=== PATIENT | female | born 1985 | race Caucasian/White ===

== ENCOUNTER 2020-07-01 22:19 | Emergency (ER) | payer OTHER, SELFPAY ==
[2020-07-01 22:16] VITALS: BP 126/100; PULSE 117; RESP 17; TEMP 37.1; O2SAT 100
[2020-07-01 22:51] LABS: Basophils Absolute Auto 0.1 K/mm3 (0.0-0.1); Basophils Percent Auto 1.3 % (0.2-1.2); Eosinophils Absolute Auto 0.1 K/mm3 (0-0.3); Hematocrit 33.5 % (37.0-47.0); Hemoglobin 11.6 g/dL (12.0-15.0); Immature Granulocyte Absolute 0.03 K/mm3 (0.00-0.031); Immature Granulocyte Percent A 0.6 % (0-0.5); Lymphocytes Absolute Auto 2.06 K/mm3 (0.9-3.2); Mean Corpuscular HGB Conc 34.6 g/dl (32-36); Mean Corpuscular Volume 98.2 fl (80-100); Monocytes Absolute Auto 0.5 K/mm3 (0.1-0.6); Monocytes Percent Auto 9.6 % (2.6-8.5); Neutrophils Absolute Auto 2.1 K/mm3 (1.3-6.7); Neutrophils Percent Auto 44.5 % (45.5-73.1); Platelet Count Result 146 k/mm3 (150-375); Red Blood Count 3.41 M/mm3 (4.2-5.4); Red Cell Distribution Width 14.6 % (11.5-14.5); White Blood Count 4.8 K/mm3 (4.5-10.0)
[2020-07-01 23:00] VITALS: BP 122/79; PULSE 81; RESP 19; O2SAT 99
[2020-07-01] MEDS: SODIUM CHLORIDE 0.9% IV 1,000 ML 999 ML IV CONT (23:02)
[2020-07-01 23:12] LABS: Anion Gap 17 mmol/L (8-16); Blood Urea Nitrogen 6 mg/dL (7-17); Calcium 8.8 mg/dL (8.4-10.2); Carbon Dioxide 25 mmol/L (22-30); Chloride 100 mmol/L (98-107); Estimated CRCL calculation 83 ml/min; Estimated Glomerular Filt Rate > 60; Glucose 57 mg/dL (65-105); Sodium 142 mmol/L (137-145)
[2020-07-01 23:14] LABS: Ethanol 420 mg/dL (<10)
--- NOTE | 2020-07-01 23:30 | PC.NURSE ---
Asked pt to void states she cant yet.
[2020-07-01 23:43] LABS: Glucose Point of Care 49 (65-105)
[2020-07-01 23:44] VITALS: PULSE 112
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
--- NOTE | 2020-07-01 23:57 | PC.NURSE ---
Informed pt. we need a urine sample states she doesn't think she can pee.
[2020-07-02] VITALS: BP 116/75; PULSE 88; RESP 20; O2SAT 100
--- NOTE | 2020-07-02 00:14 | PC.NURSE ---
Pt. up to provide urine sample.
[2020-07-02 00:19] LABS: Glucose Point of Care 78 (65-105)
[2020-07-02] MEDS: ACETAMINOPHEN 500 MG TABLET 1000 MG PO (01:06)
[2020-07-02 01:27] LABS: Glucose Point of Care 192 (65-105)
[2020-07-02 01:30] VITALS: BP 118/77; PULSE 92; RESP 14; O2SAT 100
[2020-07-02 02:30] VITALS: BP 115/86; PULSE 93; RESP 17; O2SAT 99
== END 2020-07-02 02:30 | disposition home or self-care (01) ==
PROVIDERS: Emergency Medicine; Emergency Provider Emergency Medicine
DX: N93.8 Other specified abnormal uterine and vaginal bleeding (principal); F10.129 Alcohol abuse with intoxication, unspecified; Y90.8 Blood alcohol level of 240 mg/100 ml or more; E16.2 Hypoglycemia, unspecified; Z91.410 Personal history of adult physical and sexual abuse
CPT/HCPCS: 36415; 80048; 80307; 81025; 82948; 85025; 96360; 99284; A9270; J7030

== ENCOUNTER 2020-07-11 15:18 | Inpatient (IN) | payer OTHER, SELFPAY ==
[2020-07-11] VITALS (8 sets, daily range): BP systolic 120–167; BP diastolic 75–90; PULSE 71–120; RESP 12–18; TEMP 37.3–39.4; O2SAT 97–100; BMI 19.5
--- NOTE | ~2020-07-11 | CT_ITS ---
EXAMINATION:CT chest w con DATE: 07/14/2020 10:54 INDICATION: Liver mass. TECHNIQUE: Computed tomography (CT) of the chest was performed with 75 mL Omnipaque 350 intravenous c ontrast. Automated exposure control and iterative reconstruction technique were employed. The dose-le ngth product (DLP) was 149.41 mGy-cm. COMPARISON: CT abdomen and pelvis 07/11/2020 FINDINGS: There is mild scarring at the lung apices. There is a staple line in left lung lower lobe. There is mild scarring in the lingula. No pleural effusion. The heart size is normal. No pericardial effusion. There is diffuse hepatic steatosis. Partially visualized are 2 masses in the liver with lar jayleen measuring 2.1 cm with peripheral nodular hyperenhancement in the larger mass. The spine is unrema rkable. IMPRESSION: 1. Partially visualized liver masses better evaluated on the recent abdomen MRI. In the absence of kn own malignancy or chronic liver disease, these findings are likely benign masses such as hemangiomas or focal nodular hyperplasia. 2. Diffuse hepatic steatosis. Reviewed, dictated and finalized at location A. IMPRESSION: 1. Partially visualized liver masses better evaluated on the recent abdomen MRI . In the absence of known malignancy or chronic liver disease, these findings a re likely benign masses such as hemangiomas or focal nodular hyperplasia. 2. Diffuse hepatic steatosis.
--- NOTE | ~2020-07-11 | US_ITS ---
EXAMINATION: US breast LT limited HISTORY: Palpable lumps at the 3:00 and 9:00 locations of the left breast, history of reduction mamm oplasty TECHNIQUE: Limited left breast ultrasound is performed. FINDINGS: There is no evidence of focal abnormal cystic or solid mass in the vicinity of the areas of reported palpable abnormality. IMPRESSION: No sonographic correlate for the patient's reported palpable abnormality. Recommend follow-up with di agnostic mammogram. BI-RADS Category 0: Incomplete: Needs additional imaging evaluation. Reviewed, dictated and finalized at location A. IMPRESSION: No sonographic correlate for the patient's reported palpable abnormality. Recom mend follow-up with diagnostic mammogram. BI-RADS Category 0: Incomplete: Needs additional imaging evaluation.
--- NOTE | ~2020-07-11 | CT_ITS ---
EXAMINATION: CT abdomen pelvis wo con DATE: 07/11/2020 16:28 INDICATION: Bilateral flank pain. TECHNIQUE: Computed tomography (CT) of the abdomen and pelvis was performed without intravenous contr ast. Automated exposure control and iterative reconstruction technique were employed. The dose-length product was 169.88 mGy-cm. COMPARISON: None. FINDINGS: The visualized portions of the lung bases demonstrate mild atelectasis in the left. There i s a staple line in left lower lobe. No pleural effusion. The heart size is normal. No pericardial eff usion. There is diffuse hepatic steatosis. There is a 2.2 cm mass at the junction of segments V and V I of the liver. There is a 9 mm mass in segment VII. There is a 9 mm mass in segment IVb. The gallbla dder, spleen, pancreas, adrenal glands, and kidneys are normal. There is no urolithiasis. There are n o dilated loops of bowel. The appendix is normal. There are no pathologically enlarged lymph nodes. T here is no free intraperitoneal fluid. There is mild lumbar spondylosis. IMPRESSION: 1. Liver masses, which may be benign or less likely malignant. Abdomen MRI without and with contrast is recommended. 2. Diffuse hepatic steatosis. 3. No urolithiasis. Reviewed, dictated and finalized at location A. IMPRESSION: 1. Liver masses, which may be benign or less likely malignant. Abdomen MRI with out and with contrast is recommended. 2. Diffuse hepatic steatosis. 3. No urolithiasis.
--- NOTE | ~2020-07-11 | XR_ITS ---
XR chest 1V portable DATE: 07/12/2020 06:50 INDICATION: Fever. Nausea, vomiting, diarrhea. Liver masses. TECHNIQUE: Portable AP chest on 07/12/2020 at 0648 hours COMPARISON: Postoperative change from partial surgical resection at the left lower lobe. No active in filtrate or consolidation, pleural effusion, pulmonary vascular congestion or pneumothorax is detecte d. FINDINGS: Postoperative change from partial surgical resection at the left lower lobe. No active infi ltrate or consolidation, pleural effusion, pulmonary vascular congestion or pneumothorax is detected. Normal heart size. Included skeletal structures are unremarkable other than some likely postoperative change of the left rib cage and mild dextroscoliosis of the thoracic spine. Incidental finding of spina bifida occulta at C7 and T1. IMPRESSION: Status post partial resection of the left lower lobe; no active cardiopulmonary disease Reviewed, dictated and finalized at location A. IMPRESSION: Status post partial resection of the left lower lobe; no active car diopulmonary disease
--- NOTE | ~2020-07-11 | MR_ITS ---
EXAMINATION: MR abdomen wo/w con DATE: 07/12/2020 12:18 INDICATION: Liver masses. TECHNIQUE: Magnetic resonance imaging (MRI) of the abdomen was performed without and with 9 mL MultiH ance intravenous contrast. Sequences included coronal T2-weighted FS FSE, coronal and axial FS FIESTA , axial T2-weighted FSE, coronal LAVA-flex, axial STIR FSE, axial DWI, axial dual-echo T1-weighted FS PGR, and axial LAVA. Postcontrast sequences included coronal LAVA-flex and a time course of axial LAV A. COMPARISON: Chest CT 07/11/2020 FINDINGS: There is diffuse hepatic steatosis. There are 3 hyperenhancing masses in the liver measuring up to 2. 2 cm. No washout. The gallbladder, spleen, pancreas, adrenal glands, and kidneys are normal. There ar e no dilated loops of bowel. There are no pathologically enlarged lymph nodes. There is no free intra peritoneal fluid. IMPRESSION: 1. 3 hyperenhancing liver masses measuring up to 2.2 cm. In the absence of known malignancy or chroni c liver disease, these findings are likely benign masses such as hemangiomas or focal nodular hyperpl krunal. 2. Diffuse hepatic steatosis. Reviewed, dictated and finalized at location A. IMPRESSION: 1. 3 hyperenhancing liver masses measuring up to 2.2 cm. In the absence of know n malignancy or chronic liver disease, these findings are likely benign masses such as hemangiomas or focal nodular hyperplasia. 2. Diffuse hepatic steatosis.
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
[2020-07-11 15:58] LABS: Basophils Percent Auto 0.5 % (0.2-1.2); Hematocrit 34.8 % (37.0-47.0); Hemoglobin 11.8 g/dL (12.0-15.0); Immature Granulocyte Absolute 0.16 K/mm3 (0.00-0.031); Immature Granulocyte Percent A 3.9 % (0-0.5); Immature Platelet Fraction Pct 2.1 % (0.9-11.2); Lymphocytes Absolute Auto 0.15 K/mm3 (0.9-3.2); Lymphocytes Percent Auto 3.6 % (18.3-44.2); Mean Corpuscular HGB Conc 33.9 g/dl (32-36); Mean Corpuscular Hemoglobin 33.6 pg (26-34); Mean Corpuscular Volume 99.1 fl (80-100); Mean Platelet Volume 8.9 fl (7.4-10.4); Monocytes Absolute Auto 0.2 K/mm3 (0.1-0.6); Monocytes Percent Auto 5.4 % (2.6-8.5); Neutrophils Absolute Auto 3.6 K/mm3 (1.3-6.7); Neutrophils Percent Auto 86.6 % (45.5-73.1); Platelet Count Result 100 k/mm3 (150-375); Red Blood Count 3.51 M/mm3 (4.2-5.4); Red Cell Distribution Width 13.8 % (11.5-14.5); White Blood Count 4.1 K/mm3 (4.5-10.0)
[2020-07-11 16:03] LABS: Add Urine Microscopic? YES; Appearance Urine Cloudy (Clear); Bilirubin Urine Negative (Negative); Blood Urine 1+ (Negative); Color Urine Yellow (Yellow); Glucose Urine UA Negative (Negative); Ketones Urine 2+ mg/dL (Negative); Leukocyte Esterase Ur Negative LEU/UL (Negative); Mucus Urine Rare /lpf; Nitrate Urine Negative (Negative); Protein Urine 2+ mg/dL (Negative); RBC Urine 0-2 /hpf (0-2); Specific Grav Ur 1.018 (1.001-1.035); Squamous Epithelial Cell Urine Many /hpf (Few); WBC Urine 0-3 /hpf
[2020-07-11 16:12] LABS: Alanine Aminotransferase 234 U/L (4-35); Albumin Level 4.3 g/dL (3.5-5.1); Alkaline Phosphatase 118 U/L (38-126); Anion Gap 22 mmol/L (8-16); Bilirubin,Total 0.9 mg/dL (0.2-1.3); Blood Urea Nitrogen 7 mg/dL (7-17); Calcium 7.3 mg/dL (8.4-10.2); Carbon Dioxide 14 mmol/L (22-30); Chloride 95 mmol/L (98-107); Estimated CRCL calculation 100 ml/min; Estimated Glomerular Filt Rate > 60; Glucose 119 mg/dL (65-105); Lipase 210 U/L (23-300); Sodium 131 mmol/L (137-145)
[2020-07-11 16:39] LABS: Aspartate Amino Transferase 1546 U/L (14-36)
--- NOTE | 2020-07-11 16:56 | ED.GENADULT ---
HPI - General Adult General Chief complaint: Unspecified Stated complaint: back pain, n/v Source: patient Mode of arrival: EMS Limitations: no limitations History of Present Illness HPI narrative: Patient presents via EMS with chief complaint of bilateral flank pain that has been conversely worsening over the past week. Patient states last night she was not able to get any sleep so today she called the EMS to bring her to the emergency department for evaluation. Patient reports she has a history of frequent UTIs and kidney infections. Patient denies history of kidney stones. Patient denies fever or chills. Patient reports that she has been vomiting today. Patient denies known . Patient denies chest pain, shortness of breath no abdominal pain. Related Data Home Medications Medication Instructions Recorded Confirmed Baby Vitamin D3 07/11/20 alendronate-vitamin D3 07/11/20 Allergies Allergy/AdvReac Type Severity Reaction Status Date / Time No Known Allergies Allergy Verified 07/11/20 15:40 Review of Systems Review of Systems: Narrative: CONSTITUTIONAL: Denies fever, chills, or sweats. EYES: Denies visual changes, redness, or discharge. ENT: Denies rhinorrhea, congestion, sore throat, or otalgia. CARDIOVASCULAR: Denies chest pain, palpitations, or edema. RESPIRATORY: Denies cough or dyspnea. GASTROINTESTINAL: Reports nausea and vomiting denies abdominal pain or diarrhea. GENITOURINARY: Denies dysuria or hematuria. SKIN: Denies rash or itching. MUSCULOSKELETAL: Reports back pain denies myalgia, or joint pain NEUROLOGIC: Denies headache, numbness, dizziness, or weakness. PSYCHIATRIC: Denies anxiety or depression. PMFSH Past Medical History Medical History (Updated 07/11/20 @ 18:34 by Ross Hancock PA-C) Anxiety Depression Surgical History Surgical History (Updated 07/01/20 @ 23:58 by Valentino Byers MD) History of section History of thoracotomy Social History Social History (Updated 07/01/20 @ 23:58 by Valentino Byers MD) Smoking status: Never smoker Alcohol intake: current Substance use: never Exam Narrative: Exam Narrative: GENERAL:well-nourished. Patient is slightly tearful. HEAD: Normocephalic, atraumatic. EYES: PERRLA and EOMI. ENT: Nares clear, no rhinorrhea or epistaxis. Mucous membranes moist. Oropharynx without tonsillar hypertrophy exudate or other lesions. Bilateral TMs pearly hernandez nonbulging NECK: Supple. No adenopathy or masses. No vertebral tenderness or loss of ROM. CHEST: Clear to auscultation. No respiratory distress. No wheezes rales or rhonchi HEART: Regular rate and rhythm. BACK: Back not painful to palpation. Range of motion intact. No CVA tenderness. ABDOMEN: Soft, nontender, nondistended, normal active bowel sounds. No bruises noted. EXTREMITIES: No acute changes in ROM. No edema. SKIN: Warm, dry, no rash. NEURO: No focal deficits. Alert and oriented x3. PSYCH: Normal mood and affect. Course Vital Signs Vital signs: Vital Signs Temperature 99.1 F 07/11/20 15:24 Pulse Rate 107 H 07/11/20 15:24 Respiratory Rate 18 07/11/20 15:24 Blood Pressure 125/78 07/11/20 15:24 Pulse Oximetry 99 07/11/20 15:24 Temperature 99.1 F 07/11/20 15:24 Pulse Rate 107 H 07/11/20 15:24 Respiratory Rate 18 07/11/20 15:24 Blood Pressure 125/78 07/11/20 15:24 Pulse Oximetry 99 07/11/20 15:24 Medical Decision Making MDM Narrative Medical decision making narrative: Consult with Dr. Nolan regarding patient's presentation, labs and CT findings. He states the patient needs further evaluation via abdominal MRI or CT guided biopsy of the masses to determine if they are benign or malignant. He states that he can handle this if the patient is admitted but due to the patient's lack of primary care if the patient attempted to do so outpatient it would delay her treatment. Is in the patient best interest that she be a
[2020-07-11] MEDS: SODIUM CHLORIDE 0.9% IV 1,000 ML 999 ML IV CONT (17:10)
[2020-07-11] MEDS: METOCLOPRAMIDE HCL INJ 10 MG/2 ML VIAL IV PUSH (17:11)
[2020-07-11] MEDS: KETOROLAC 15 MG/ML VIAL (*BKC) IV PUSH (17:35)
[2020-07-11 18:46] LABS: Ethanol 177 mg/dL (<10)
[2020-07-11 19:31] LABS: Amphetamine Screen Urine Negative (Negative); Barbiturate Screen Urine Negative (Negative); Benzodiazepines Screen Urine Negative (Negative); Cannabinoid Screen Urine Negative (Negative); Cocaine Screen Urine Negative (Negative); Methadone Screen Urine Negative (Negative); Opiate Screen Urine Negative (Negative); Phencyclidine Screen Urine Negative (Negative)
--- NOTE | 2020-07-11 20:15 | ADMGEN ---
This patient, Maddie Islas, was admitted to Medical Room 349-01. Patient/family oriented to hospital policies and general routines including ID bracelet, bed and alarms, visiting hours, pain management, procedures, bathroom and other care routines, personal items, smoking policy, room service/diet, and visiting hours. Information on how to activate the Rapid Response Team has been discussed. Patient/Family are encouraged to report perceived risks to care and to ask questions if they do not understand what they are told or what they should do.
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
[2020-07-12] VITALS (13 sets, daily range): BP systolic 129–151; BP diastolic 82–89; PULSE 83–100; RESP 12–20; TEMP 37–38.6; O2SAT 100; BMI 19.5
[2020-07-12 00:24] LABS: Lactic Acid Reflex 2.2 mmol/L (0.7-2.1)
[2020-07-12] MEDS: SODIUM CHLORIDE 0.9% IV 1,000 ML 100 ML IV CONT ×3 (00:37→21:22)
[2020-07-12] MEDS: KETOROLAC 30 MG/ML VIAL (*BKC) IV PUSH (00:51)
[2020-07-12] MEDS: LORazepam INJ (*CRX) 2 MG/ML VIAL 0.5 MG IV PUSH ×2 (00:52→10:33)
[2020-07-12 02:41] LABS: Glucose Point of Care 232 (65-105)
[2020-07-12 03:10] LABS: Reflex Lactic Acid Yes or No Add Lactic
[2020-07-12 04:05] LABS: Hematocrit 29.2 % (37.0-47.0); Hemoglobin 10.2 g/dL (12.0-15.0); Immature Platelet Fraction Pct 2.5 % (0.9-11.2); Mean Corpuscular HGB Conc 34.9 g/dl (32-36); Mean Corpuscular Hemoglobin 33.2 pg (26-34); Mean Corpuscular Volume 95.1 fl (80-100); Mean Platelet Volume 8.6 fl (7.4-10.4); Platelet Count Result 80 k/mm3 (150-375); Red Blood Count 3.07 M/mm3 (4.2-5.4); Red Cell Distribution Width 13.9 % (11.5-14.5); White Blood Count 2.7 K/mm3 (4.5-10.0)
[2020-07-12 04:34] LABS: Anion Gap 9 mmol/L (8-16); Blood Urea Nitrogen 7 mg/dL (7-17); Calcium 7.6 mg/dL (8.4-10.2); Carbon Dioxide 25 mmol/L (22-30); Chloride 97 mmol/L (98-107); Estimated CRCL calculation 98 ml/min; Estimated Glomerular Filt Rate > 60; Glucose 192 mg/dL (65-105); Lactic Acid 1.1 mmol/L (0.7-2.1); Potassium 3.6 mmol/L (3.4-5.0); Sodium 131 mmol/L (137-145)
[2020-07-12 04:48] LABS: Band Neutrophils Percent 7 % (0-6); Large Platelets Present; Lymphocytes Absolute Manual 0.16 K/mm3 (1.1-4.5); Monocytes Absolute Manual 0.16 K/mm3 (0.1-0.90); Monocytes Percent Manual 6 % (3-9); Neutrophils Absolute Manual 2.37 K/mm3 (1.7-7.2); Neutrophils Percent Manual 81 % (46-73); Ovalocytes 1+ (NORMAL); Platelet Estimate Decreased (Adequate); Stomatocytes 1+ (NORMAL); Total Cells Counted 100
[2020-07-12 05:31] LABS: Hepatitis B Surface Antigen Negative (Negative)
[2020-07-12 05:37] LABS: HAV RESULT Negative (Negative); Hepatitis B Core IgM Result Negative (Negative)
[2020-07-12 05:48] LABS: Hepatitis C Virus Antibody Negative (Negative)
[2020-07-12 06:51] LABS: Hemoglobin A1C 4.2 % (<5.7)
[2020-07-12 06:53] LABS: Alanine Aminotransferase 174 U/L (4-35)
[2020-07-12 08:07] LABS: Aspartate Amino Transferase 822 U/L (14-36)
[2020-07-12] MEDS: THIAMINE HCL 200 MG/2 ML VIAL 100 MG IV PUSH (08:30)
[2020-07-12 08:53] LABS: Glucose Point of Care 136 (65-105)
[2020-07-12] MEDS: ONDANSETRON INJ 4 MG/2 ML VIAL IV PUSH ×2 (10:28→21:22)
[2020-07-12] MEDS: IBUPROFEN 600 MG TABLET PO (10:31)
[2020-07-12 12:16] LABS: Glucose Point of Care 126 (65-105)
--- NOTE | 2020-07-12 12:26 | WPDGICN ---
Assessment and Plan Assessment and plan (1) Pancytopenia: Code(s): D61.818 - Other pancytopenia Status: Acute Assessment and Plan: Pancytopenia identified on lab testing could easily be related to cirrhosis. Low platelet count will make us defer any liver biopsy for the immediate future. We will continue to monitor this. Hematology consult if cirrhosis cannot be confirmed. (2) Abnormal CT scan, liver: Code(s): R93.2 - Abnormal findings on diagnostic imaging of liver and biliary tract Status: Acute Assessment and Plan: CT scan of the liver suggest possible liver masses. Malignancy is felt less likely. Agree with MR I which will be performed today. Tumor marker will be obtained. Liver biopsy should be deferred until after MRI obtain. Coagulation profile will be obtained in the interim. I suspect this could relate to scar tissue in the liver such as cirrhosis. (3) Alcohol abuse: Code(s): F10.10 - Alcohol abuse, uncomplicated Status: Acute (4) Elevated LFTs: Code(s): R79.89 - Other specified abnormal findings of blood chemistry Status: Acute Assessment and Plan: Elevated liver pattern most consistent with alcoholic liver disease. AST greater than ALT to this degree most consistent with alcoholic liver disease. As stated suspect she could even have cirrhosis is based on CT scan findings alcohol abstinence advised. Watch for signs of alcohol withdrawal. We will continue to monitor LFTs. viral hepatitis markers ABC her neck this period (5) Febrile illness, acute: Code(s): R50.9 - Fever, unspecified Status: Acute Assessment and Plan: Fever noted in the ER is quite high. The etiology of this remains unclear. Likely it contributes to her flank pain. It is not certain that this is related to her elevated LFTs at this time. Workup in progress including blood cultures eccentric. GI Consult Note Consult date/time: 07/12/20 12:26 HPI: Maddie Islas is a 35 year old female Seen in evaluation at the request of the ER. Patient reports having flank pain for this reason went to the emergency room. She was found to have elevated LFTs and very high fever. She has been living with her grandmother an [place]. previously a resident of [place]. Patient reports rather significant alcohol intake for some time. Often will drink a bottle wine. Was seen in the ER several weeks ago after with intoxication. Patient denies any jaundice. She denies any known liver disease. She has had no bleeding. The fever is a new finding at this time. Family history is noncontributory. 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 marked elevation of LFTs were identified. Patient has no ext known exposure to hepatitis. As stated she does drink heavily. Review of Systems Review of Systems: All systems reviewed & are unremarkable except as noted in HPI and below PMFSH Past Medical History Medical History (Updated 07/12/20 @ 12:30 by Sachin Nolan MD) Anxiety Depression Surgical History Surgical History History of section History of thoracotomy Family History Family History Mother Diabetes mellitus Social History Social History Smoking status: Never smoker Alcohol intake: current Drinks per week: 5 Substance use: never Substance use type: does not use Spiritual care concerns: No Meds Home Medications and Allergies Home Medications Medication Instructions Recorded Confirmed Type alendronate-vitamin D3 1 tablet PO DAILY 07/11/20 07/11/20 History Allergies Allergy/AdvReac Type Severity Reaction Status Date / Time bupropion [From Wellbutrin] Allergy Seizure Verified 07/11/20 20:54 Vital Signs Vital Signs - 24 hr 07/11/20 15:
[2020-07-12 13:12] LABS: INR 0.9; Prothrombin Time 12.1 Seconds (11.1-14.7)
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
[2020-07-12] MEDS: IBUPROFEN 400 MG TABLET PO (18:12)
[2020-07-12 18:29] LABS: Glucose Point of Care 96 (65-105)
--- NOTE | 2020-07-12 19:31 | PC.NURSE ---
This patient, Maddie Islas, was received from [[address] [place] [address] ] on 07/12/20 at 1715. Personal belongings list checked and signed. Patient/family oriented to unit policies and routines
[2020-07-12] MEDS: MELATONIN 5 MG TABLET 10 MG PO (23:26)
[2020-07-13] VITALS (9 sets, daily range): BP systolic 110–117; BP diastolic 67–81; PULSE 89–102; RESP 16–18; TEMP 36.8–39.1; O2SAT 99–100
[2020-07-13] MEDS: IBUPROFEN 400 MG TABLET PO ×3 (03:37→15:50)
[2020-07-13 06:03] LABS: Hematocrit 30.6 % (37.0-47.0); Hemoglobin 10.8 g/dL (12.0-15.0); Immature Platelet Fraction Pct 5.9 % (0.9-11.2); Mean Corpuscular HGB Conc 35.3 g/dl (32-36); Mean Corpuscular Hemoglobin 33.1 pg (26-34); Mean Corpuscular Volume 93.9 fl (80-100); Platelet Count Result 40 k/mm3 (150-375); Red Blood Count 3.26 M/mm3 (4.2-5.4); Red Cell Distribution Width 13.5 % (11.5-14.5); White Blood Count 2.3 K/mm3 (4.5-10.0)
[2020-07-13 06:10] LABS: Prothrombin Time 12.6 Seconds (11.1-14.7)
[2020-07-13 06:27] LABS: Alanine Aminotransferase 120 U/L (4-35); Albumin Level 3.3 g/dL (3.5-5.1); Alkaline Phosphatase 107 U/L (38-126); Anion Gap 10 mmol/L (8-16); Aspartate Amino Transferase 454 U/L (14-36); Bilirubin,Total 1.4 mg/dL (0.2-1.3); Blood Urea Nitrogen 3 mg/dL (7-17); CRP 7.3 mg/dL (<1.0); Calcium 7.5 mg/dL (8.4-10.2); Carbon Dioxide 27 mmol/L (22-30); Chloride 94 mmol/L (98-107); Estimated CRCL calculation 153 ml/min; Estimated Glomerular Filt Rate > 60; Glucose 176 mg/dL (65-105); Potassium 2.3 mmol/L (3.4-5.0); Sodium 131 mmol/L (137-145)
[2020-07-13 07:06] LABS: Anisocytosis 1+ (NORMAL); Band Neutrophils Percent 18 % (0-6); Lymphocytes Absolute Manual 0.25 K/mm3 (1.1-4.5); Microcytosis 1+ (NORMAL); Monocytes Absolute Manual 0.09 K/mm3 (0.1-0.90); Monocytes Percent Manual 4 % (3-9); Neutrophils Absolute Manual 1.95 K/mm3 (1.7-7.2); Neutrophils Percent Manual 67 % (46-73); Platelet Estimate Decreased (Adequate); Total Cells Counted 100
[2020-07-13 07:08] LABS: Hypochromasia 1+ (NORMAL); Polychromasia 1+ (NORMAL)
[2020-07-13] MEDS: SODIUM CHLORIDE 0.9% IV 1,000 ML 100 ML IV CONT (07:30)
[2020-07-13] MEDS: KCL 20 MEQ/SW 100 ML 100 ML 25 MEQ IVPB (08:21)
[2020-07-13] MEDS: POTASSIUM CHLORIDE 20 MEQ TABLET 40 MEQ PO (08:22)
[2020-07-13] MEDS: THIAMINE HCL 200 MG/2 ML VIAL 100 MG IV PUSH (08:22)
--- NOTE | 2020-07-13 09:26 | WPDGIPROGNO ---
Progress Note: A&P Additional Plan Patient continues with high fever. COVID testing in progress. Patient complains of generalized body aches. Pain in the flank. Physical exam abdomen soft and nontender. Labs reveal continued decline in LFTs. Impression 1. Febrile illness. COVID testing in progress. Could this be a viral syndrome. Elevated LFTs also noted. No specific infectious etiology. LFTs improving 2. Elevated LFTs. Most consistent with alcoholic liver disease. Continued alcohol abstinence suggested. Could this be related to a viral infection. Typical viral testing negative. Will check Monospot test. 3. Pancytopenia. This would correlate with alcoholic liver disease and possible underlying cirrhosis. Platelet clot out continues to decline quite dramatically. Hematology evaluation may need to be considered. 4. Abnormal CT scan. Masses in the liver on CT scan. MRI suggests these may be hemangiomas although focal nodular hyperplasia cannot be excluded. Given the suspicion of hemangiomas liver biopsy should be deferred at this time. Tumor marker pending. Subjective Date/time seen: 07/13/20 09:26 Objective Data Vital Signs Vital Signs: Vital Signs - 24 hr 07/12/20 09:51 07/12/20 12:00 07/12/20 12:11 Temperature 101.5 F H 99.9 F H Pulse Rate 100 Respiratory Rate 20 Blood Pressure 130/82 130/82 Pulse Oximetry 100 07/12/20 14:00 07/12/20 16:00 07/12/20 18:12 Temperature 98.6 F 100.0 F H Pulse Rate 83 Respiratory Rate 16 Blood Pressure 151/85 H 151/85 H Pulse Oximetry 100 07/12/20 19:12 07/12/20 19:40 07/13/20 00:00 Temperature 99.5 F 99.5 F 99.0 F Pulse Rate 92 89 Respiratory Rate 12 16 Blood Pressure 129/89 117/72 Pulse Oximetry 100 100 07/13/20 03:36 07/13/20 03:37 07/13/20 04:35 Temperature 102.4 F H 102.4 F H 99.4 F Pulse Rate 102 H Respiratory Rate 18 Blood Pressure 113/67 Pulse Oximetry 100 Intake/Output Intake/Output: Intake & Output 07/10/20 07/11/20 07/12/20 07/13/20 23:59 23:59 23:59 23:59 Intake Total 1000 2200 1240 Output Total 2300 Balance 1000 -100 1240 Meds/Results Medications: Active Medications Generic Name Dose Route Start Last Admin Trade Name Freq PRN Reason Stop Dose Admin Sodium Chloride 1,000 mls @ 100 mls/hr 07/11/20 23:15 07/13/20 07:30 Normal Saline Iv IV CONT 100 mls/hr .Q10H MIRANDA Administration Ibuprofen 400 mg 07/12/20 12:12 07/13/20 03:37 Ibuprofen 400 Mg Tablet PO 400 mg Q6H PRN Administration Pain or Fever Lorazepam 0.5 mg 07/12/20 12:11 Lorazepam Inj (*Crx) 2 Mg/Ml Vial IV PUSH Q8H PRN Anxiety Ondansetron HCl 4 mg 07/12/20 10:07 07/12/20 21:22 Ondansetron Inj 4 Mg/2 Ml Vial IV PUSH 4 mg Q4H PRN Administration Nausea And Vomiting Thiamine HCl 100 mg 07/12/20 09:00 07/13/20 08:22 Thiamine Hcl 200 Mg/2 Ml Vial IV PUSH 100 mg DAILY MIRANDA Administration Radiology Results: ITS Impressions Abdomen/Pelvis CT 07/11/20 16:34 IMPRESSION: 1. Liver masses, which may be benign or less likely malignant. Abdomen MRI without and with contrast is recommended. 2. Diffuse hepatic steatosis. 3. No urolithiasis. Chest X-Ray 07/12/20 06:51 IMPRESSION: Status post partial resection of the left lower lobe; no active cardiopulmonary disease Abdomen MRI 07/12/20 12:39 IMPRESSION: 1. 3 hyperenhancing liver masses measuring up to 2.2 cm. In the absence of known malignancy or chronic liver disease, these findings are likely benign masses such as hemangiomas or focal nodular hyperplasia. 2. Diffuse hepatic steatosis. Labs Labs: Laboratory Results - last 24 hr 07/12/20 07/12/20 07/12/20 12:13 12:53 18:01 WBC RBC Hgb Hct MCV MCH MCHC RDW Plt Count MPV Immature Gran % (Auto) Neut % (Auto) Lymph % (Auto) Coke % (Auto) Eos % (Auto) Baso % (Auto) Ly
--- NOTE | 2020-07-13 10:49 | PM.IMPN ---
Progress Note: A&P Assessment and Plan (1) Febrile illness, acute: Code(s): R50.9 - Fever, unspecified Status: Acute Assessment and Plan: The patient appears to have acute cirrhosis, likely alcohol related, with elevated but improving liver enzymes. CXR without any pneumonia or respiratory concerns does not have any respiratory symptoms at this time. administer antipyretics as needed. blood cultures x 2 showed no growth urine cultures pending. high fevers continue to return , cause is unknown at this time may be liver masses or COVID consulted Electronic Gaming Device Supervisor/Oncologist. ordered COVID testing and isolation (2) Acute hepatitis: Code(s): B17.9 - Acute viral hepatitis, unspecified Status: Acute Assessment and Plan: negative hepatitis panel, continue to Monitor LFTs, GGT pending refrain and encourage alcohol cessation appreciate GI consult and recommendations (3) Liver masses: Code(s): R16.0 - Hepatomegaly, not elsewhere classified Status: Acute Assessment and Plan: Consistent with the patient's chronic alcohol use masses are likely the cause of her flank soreness/pain. concern for Cirrhosis With the patient's fever and pancytopenia, some concern for infection vs inflammation. There does not seem to be any other source of wounds and patient denies any localized source of pain Recommend liver biopsy but plts are low and fevers persist. INR 1.0 GI ordered Tumor marker labs Continue to monitor liver functions labs for continued improvement. appreciate GI and Oncologist/Heme consult and recommendations, MRI showed diffuse hepatic steatosis. 3 hyperenhancing masses in the liver measuring up to 2.2 cm. gallbladder, spleen, pancreas, adrenal glands, and kidneys are normal. no dilated loops of bowel. no pathologically enlarged lymph nodes. no free intraperitoneal fluid. In the absence of known malignancy or chronic liver disease, these findings are likely benign masses such as hemangiomas or focal nodular hyperplasia. (4) Alcohol abuse: Code(s): F10.10 - Alcohol abuse, uncomplicated Status: Acute Assessment and Plan: advised patient total alcohol abstinence Watching for signs of alcohol withdrawal - no agitation or anxiety or tremors noted at this time. HR is tachy at times of activity, but may be related to dehydration or fever. [facility] protocol. Discussed with home care liaison and she agreed to provide local AA resources to patient Ativan prn. Thiamine IV daily. (5) Pancytopenia: Code(s): D61.818 - Other pancytopenia Status: Acute Assessment and Plan: Monitor blood counts, transfuse prn. Plts dropping from 146 to 100 to 80 to 40. WBC dropping from 4.8, 4.1, 2.7, to 2.3. Hemogllbin fairly stable at 11.6, 11.8, 10.2, 10.8 Pancytopenia may be related to cirrhosis, Inflammmation/Infection, possibly Viral infection. Low platelet count of means that liver biopsy may have to be completed as outpatient testing and with GI followup. Consulted with Hematology/Oncologist. Subjective Date/time seen: 07/13/20 10:49 Patient is feeling much better today. Maddie was awake and resting in bed when I went in to see her. She was watching both the hospital television as well as a TV show on her phone. She was alert and oriented and seemed to have more energy today. There were no signs of alcohol withdrawal, no anxiety, no agitation, no tremors, and no tachycardia. Her heart rate is running in the 80s and regular on auscultation. Blood cultures x 2 are no growth, urine cultures remain pending. She stated that her fever hit 104, and she is worried about where these fevers might be coming from. Her COVID test remains pending her and we should get the results later today. I have also consulted rate and cost analyst oncologist as her pancytopenia is getting progressively worse, WBC dropped from 4.8 to 2.3, Platelets dropped from 146 to 40, She stated ana
[2020-07-13 11:09] LABS: Monoscreen Negative (Negative); Negative Monotest Control Negative (Negative); Positive Monotest Control Positive (Positive)
[2020-07-13 13:52] LABS: SARS-CoV-2 RNA PCR Negative
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
[2020-07-13 17:17] LABS: Potassium 3.4 mmol/L (3.4-5.0)
[2020-07-13] MEDS: LORazepam INJ (*CRX) 2 MG/ML VIAL 0.5 MG IV PUSH (20:49)
[2020-07-14] MEDS: LORazepam INJ (*CRX) 2 MG/ML VIAL 0.5 MG IV PUSH ×2 (05:57→22:57)
[2020-07-14 06:00] VITALS: BP 125/87; PULSE 80; RESP 18; TEMP 36.2; O2SAT 100
[2020-07-14 06:36] LABS: Eosinophils Percent Auto 0.5 % (0-4.4); Hematocrit 32.9 % (37.0-47.0); Hemoglobin 11.5 g/dL (12.0-15.0); Immature Granulocyte Absolute 0.03 K/mm3 (0.00-0.031); Immature Granulocyte Percent A 1.5 % (0-0.5); Immature Platelet Fraction Pct 12.7 % (0.9-11.2); Lymphocytes Absolute Auto 0.74 K/mm3 (0.9-3.2); Lymphocytes Percent Auto 36.8 % (18.3-44.2); Mean Corpuscular Volume 94.5 fl (80-100); Mean Platelet Volume 12.7 fl (7.4-10.4); Monocytes Absolute Auto 0.5 K/mm3 (0.1-0.6); Monocytes Percent Auto 24.9 % (2.6-8.5); Neutrophils Absolute Auto 0.7 K/mm3 (1.3-6.7); Neutrophils Percent Auto 34.3 % (45.5-73.1); Platelet Count Result 40 k/mm3 (150-375); Red Blood Count 3.48 M/mm3 (4.2-5.4); Red Cell Distribution Width 13.6 % (11.5-14.5)
[2020-07-14 07:01] LABS: Alanine Aminotransferase 106 U/L (4-35); Albumin Level 3.1 g/dL (3.5-5.1); Alkaline Phosphatase 122 U/L (38-126); Anion Gap 6 mmol/L (8-16); Aspartate Amino Transferase 293 U/L (14-36); Bilirubin,Total 1.1 mg/dL (0.2-1.3); Blood Urea Nitrogen 5 mg/dL (7-17); CRP 7.1 mg/dL (<1.0); Carbon Dioxide 31 mmol/L (22-30); Chloride 98 mmol/L (98-107); Estimated CRCL calculation 153 ml/min; Estimated Glomerular Filt Rate > 60; Glucose 83 mg/dL (65-105); Potassium 2.8 mmol/L (3.4-5.0); Sodium 135 mmol/L (137-145)
[2020-07-14 07:20] LABS: Band Neutrophils Percent 1 % (0-6); Hypochromasia 1+ (NORMAL); Lymphocytes Absolute Manual 0.82 K/mm3 (1.1-4.5); Monocytes Percent Manual 20 % (3-9); Neutrophils Absolute Manual 0.78 K/mm3 (1.7-7.2); Neutrophils Percent Manual 38 % (46-73); Platelet Estimate Decreased (Adequate); Total Cells Counted 100
--- NOTE | 2020-07-14 07:20 | WPDGIPROGNO ---
Progress Note: A&P Assessment and Plan (1) Abnormal CT scan, liver: Code(s): R93.2 - Abnormal findings on diagnostic imaging of liver and biliary tract Status: Acute Assessment and Plan: MRI suggests liver masses are benign hemangiomas. Focal nodular hyperplasia cannot be excluded. I would defer any liver biopsy because of risk of bleeding. Check tumor markers. Consider follow-up CT scan in 6 months. (2) Febrile illness, acute: Code(s): R50.9 - Fever, unspecified Status: Acute Assessment and Plan: Patient's fever has dissipated. COVID status is negative. Etiology of fever remains somewhat unclear at this point. (3) Pancytopenia: Code(s): D61.818 - Other pancytopenia Status: Acute Assessment and Plan: Pancytopenia noted. Hematology opinion is pending. This could be related to alcoholic liver disease. Given profound nature of her pancytopenia and progressive decline and platelets. Will appreciate input from Hematology. Otherwise alcohol abstinence continue to monitor labs. (4) Alcohol abuse: Code(s): F10.10 - Alcohol abuse, uncomplicated Status: Acute Assessment and Plan: Patient has a strong history of alcohol abuse. Continued drinking up until time of admission. Plan is for alcohol abstinence and may need to consider rehab. (5) Elevated LFTs: Code(s): R79.89 - Other specified abnormal findings of blood chemistry Status: Acute Assessment and Plan: Elevated LFTs most consistent with alcoholic liver disease. Because of pancytopenia concern about underlying liver damage. Liver biopsy will need to be defer given low platelet count. But also because of risk of bleeding from what appears to be hemangiomas. It is uncertain how this relates to her fever. No evidence this time for viral hepatitis. Patient lives in [place] likely will need follow-up tear if that is where she is to return. Subjective Date/time seen: 07/14/20 07:20 Patient much more comfortable today. Tolerating diet. Denies abdominal pain. Fever has abated. Review of Systems Review of Systems: All systems reviewed & are unremarkable except as noted in HPI and below Exam Narrative: Exam Narrative: Physical exam reveals patient to be alert. Vital signs are stable. HEENT exam reveals no scleral icterus. Lungs are clear to auscultation and percussion. Heart is without murmur or extra sounds. Abdomen is soft with no obvious organomegaly. Extremities are without clubbing cyanosis or edema. Objective Data Vital Signs Vital Signs: Vital Signs - 24 hr 07/13/20 08:00 07/13/20 15:50 07/13/20 16:50 Temperature 99.1 F 99.1 F 99.1 F Pulse Rate 102 H Respiratory Rate 18 Blood Pressure 110/78 Pulse Oximetry 99 07/13/20 21:44 07/13/20 22:00 07/14/20 06:00 Temperature 99.0 F 98.2 F 97.1 F L Pulse Rate 89 80 Respiratory Rate 18 18 Blood Pressure 115/81 125/87 Pulse Oximetry 100 100 Intake/Output Intake/Output: Intake & Output 07/11/20 07/12/20 07/13/20 07/14/20 23:59 23:59 23:59 23:59 Intake Total 1000 2200 4060 550 Output Total 2300 Balance 1000 -100 4060 550 Meds/Results Medications: Active Medications Generic Name Dose Route Start Last Admin Trade Name Freq PRN Reason Stop Dose Admin Ibuprofen 400 mg 07/12/20 12:12 07/13/20 15:50 Ibuprofen 400 Mg Tablet PO 400 mg Q6H PRN Administration Pain or Fever Lorazepam 0.5 mg 07/12/20 12:11 07/14/20 05:57 Lorazepam Inj (*Crx) 2 Mg/Ml Vial IV PUSH 0.5 mg Q8H PRN Administration Anxiety Ondansetron HCl 4 mg 07/12/20 10:07 07/12/20 21:22 Ondansetron Inj 4 Mg/2 Ml Vial IV PUSH 4 mg Q4H PRN Administration Nausea And Vomiting Thiamine HCl 100 mg 07/12/20 09:00 07/13/20 08:22 Thiamine Hcl 200 Mg/2 Ml Vial IV PUSH 100 mg DAILY MIRANDA Administration Radiology Results: ITS Impressions Abdomen/Pelvis CT
[2020-07-14 07:21] LABS: Anisocytosis 1+ (NORMAL); Microcytosis 1+ (NORMAL)
[2020-07-14 08:00] VITALS: PULSE 80; RESP 18; O2SAT 100
[2020-07-14] MEDS: POTASSIUM CHLORIDE 20 MEQ PACKET (FOR LIQUID) 40 MEQ PO (08:26)
[2020-07-14] MEDS: THIAMINE HCL 200 MG/2 ML VIAL 100 MG IV PUSH (08:26)
[2020-07-14 08:58] LABS: HIV 1/2 Ab P24 Ag Result Negative (Negative)
[2020-07-14] MEDS: IBUPROFEN 400 MG TABLET PO (12:27)
--- NOTE | 2020-07-14 13:42 | PM.IMPN ---
Progress Note: A&P Assessment and Plan (1) Febrile illness, acute: Code(s): R50.9 - Fever, unspecified Status: Acute Assessment and Plan: likely due to Enterococcus, E coli UTI fevers have resolved at this time, no tremors or chills or diaphoresis today started on IV vancomycin and IV Rocephin (2) Acute hepatitis: Code(s): B17.9 - Acute viral hepatitis, unspecified Status: Acute Assessment and Plan: RULED out. LIkely seconadry to alcoholic liver disease. negative hepatitis panel, LFTs improving, GGT pending, appreciate Gastroenterology recommendations and consultation (3) Liver masses: Code(s): R16.0 - Hepatomegaly, not elsewhere classified Status: Acute Assessment and Plan: MRI completed, chest CT and chest ultrasound with no immediate are acute concerns, recommend a mammogram after discharge hepatitis panel negative MRI of abdomen shows liver masses 3 of them, likely benign, recommend liver biopsy when platelets have improved and pancytopenia has improved alcohol cessation (4) Alcohol abuse: Code(s): F10.10 - Alcohol abuse, uncomplicated Status: Acute Assessment and Plan: [facility] protocol. Ativan prn. Thiamine IV daily. hepatitis panel negative (5) Pancytopenia: Code(s): D61.818 - Other pancytopenia Status: Acute Assessment and Plan: We will check a peripheral blood smear. Monitor blood counts, transfuse prn. appreciate Hematology consult and recommendations HIV negative, mono negative, COVID negative, hepatitis panel negative chest CT and chest ultrasound with no immediate are acute concerns, recommend a mammogram after discharge (6) Depression: Qualifiers: Depression Type: other depression Qualified Code(s): F32.89 - Other specified depressive episodes Code(s): F32.9 - Major depressive disorder, single episode, unspecified Status: Inactive Assessment and Plan: Resume home medications when appropriate. (7) Enterococcus UTI: Code(s): N39.0 - Urinary tract infection, site not specified; B95.2 - Enterococcus as the cause of diseases classified elsewhere Status: Acute Assessment and Plan: Patient has a history of UTIs patient had mild flank pain admission urine culture was ordered Urine culture grew E coli, Enterococcus species. Started patient on IV vancomycin and Rocephin. Hoping sensitivities will narrow the antibiotic choice soon. Discharge pending urine sensitivity with an oral medication that she can tolerate and get access to. (8) Hypokalemia: Code(s): E87.6 - Hypokalemia Status: Acute Assessment and Plan: patient has a history of alcohol abuse patient has not been eating due to feeling poorly, lack of appetite, and feeling full early on appetite has returned today and ate well at lunch time Potassium level yesterday was 2.3, was treated with 40 IV and 40 oral, and returned with a potassium of 3.4. She has not had IV fluids running , they were discontinued yesterday. But her potassium again was 2.8 this morning. Treated with 40 IV and 40 oral with a repeat BMP this afternoon. I did inform the patient that I may have to start her on a low-dose potassium supplement if she were to discharge in the next day or two. Discharge also pending stabilized potassium levels with oral medications. Additional Plan Date of service was 07/11/2020 at 23:00 hrs. Subjective Date/time seen: 07/14/20 13:42 Maddie was feeling really well today, she ate 75% of her lunch, with no nausea or vomiting today. She is planning on taking a shower today. We reviewed all of her imaging study reports and discussed the plan of care for her. I informed her of the UTI findings and we discussed her persistent low potassium level. Urine culture grew E coli, Enterococcus species. Started patient on IV vancomycin and Rocephin. H
[2020-07-14 14:00] VITALS: BP 120/84; PULSE 89; RESP 16; TEMP 36.8; O2SAT 100
--- NOTE | 2020-07-14 14:22 | PCNFU ---
Nutrition Follow-Up Complete: Inadequate oral intake related to liver masses as evidenced by NPO status. Goal: Patient to meet estimated nutritional needs. Patient is progressing towards goal. We will continue current goal. Pt current nutrition is Regular, Level 7. Last recorded weight is 48.5 kg. No new weight reported. Bowel Motility:+BM reported 07/13 Labs Reviewed:Na 135,BUN 5,Cr 0.3,Hct 32.9,Hgb 11.5 Meds Noted:Motrin, Thiamine. Additional Notes: Nutrition Follow up today. Patient currently eating a regular diet. Intake 75% of meals today. She is not interested in diet supplements, she did try one at lunchtime today. MD orders to discontinue. Patient had no diet questions or concerns. Agree with diet orders. Monitoring: Follow up every 5 days.
[2020-07-14 15:48] LABS: Anion Gap 5 mmol/L (8-16); Blood Urea Nitrogen 6 mg/dL (7-17); Calcium 8.7 mg/dL (8.4-10.2); Carbon Dioxide 30 mmol/L (22-30); Chloride 95 mmol/L (98-107); Estimated CRCL calculation 120 ml/min; Estimated Glomerular Filt Rate > 60; Glucose 137 mg/dL (65-105); Potassium 3.9 mmol/L (3.4-5.0); Sodium 130 mmol/L (137-145)
[2020-07-14 16:02] LABS: Iron 14 ug/dL (37-170)
[2020-07-14 16:11] LABS: Percent Iron Saturation 6 % (20-50)
[2020-07-14 16:58] LABS: Folic Acid 11.8 ng/mL (2.76->20); Vitamin B12 > 1000.0 pg/mL (239-931)
--- NOTE | 2020-07-14 17:29 | WPDONCPN ---
Progress Note: A/P - Additional Plan Liver masses. CT chest also showed no abnormality. Left breast ultrasound came back unremarkable. Likely liver masses are benign secondary to hemangioma versus nodular hyperplasia. Alpha-fetoprotein is pending. Patient will follow-up with us in the office. Pancytopenia. This is likely secondary to liver disease and alcohol abuse. Iron studies suggestive of anemia of chronic disease and inflammation versus true iron deficiency. Ferritin is elevated. B12 level is elevated. Platelet antibodies are pending. Continue supportive transfusion as needed. Elevated liver enzymes. Now has improved. - Time Spent With Patient Total time spent is greater than 50% in coordination of care (as documented) at patient's floor/unit and/or counseling patient: 15 - 25 minutes Subjective Interval history: Pancytopenia Liver masses Review of Systems - Review of Systems All systems reviewed & are unremarkable except as noted in HPI and bel - Neurologic Reports hearing normal, Denies abnormal movements, Denies headache(s), Denies tremor(s) Exam Vital signs: Temp Pulse Resp BP Pulse Ox 36.8 C 89 16 120/84 100 07/14/20 14:00 07/14/20 14:00 07/14/20 14:00 07/14/20 14:00 07/14/20 14:00 Narrative: Lungs are clear to auscultation bilaterally Cardiovascular regular rate rhythm no murmurs Abdomen slight tenderness in the right upper quadrant bowel sounds are positive Extremities no edema PN: Objective Data - Labs CBC & Chem 7: 07/14/20 05:39 07/14/20 15:24 Labs: Laboratory Results - last 24 hr 07/14/20 07/14/20 07/14/20 05:39 05:39 05:39 WBC 2.0 L RBC 3.48 L Hgb 11.5 L Hct 32.9 L MCV 94.5 MCH 33.0 MCHC 35.0 RDW 13.6 Plt Count 40 L MPV 12.7 H Immature Gran % (Auto) 1.5 H Neut % (Auto) 34.3 L Lymph % (Auto) 36.8 Robeson % (Auto) 24.9 H Eos % (Auto) 0.5 Baso % (Auto) 2.0 H Lymph # (Auto) 0.74 L Robeson # (Auto) 0.5 Eos # (Auto) 0.0 Baso # (Auto) 0.0 Abs Immat Gran (auto) 0.03 Absolute Neuts (auto) 0.7 L Absolute Nucleated RBC 0.0 Total Counted 100 Neutrophils % (Manual) 38 L Band Neutrophils % 1 Lymphocytes % (Manual) 41.0 Monocytes % (Manual) 20 H Nucleated RBC % 0.0 Abs Neuts (Manual) 0.78 L Abs Lymphs (Manual) 0.82 L Abs Monocytes (Manual) 0.40 Platelet Estimate Decreased % Immature Plt Fraction 12.7 H Hypochromasia 1+ Anisocytosis 1+ Microcytosis 1+ Sodium 135 L Potassium 2.8 L* Chloride 98 Carbon Dioxide 31 H Anion Gap 6 L BUN 5 L Creatinine 0.30 L Estim Creat Clear Calc 153 Estimated GFR > 60 Glucose 83 Calcium 8.0 L Iron TIBC % Saturation Ferritin Total Bilirubin 1.1 AST 293 H ALT 106 H Alkaline Phosphatase 122 C-Reactive Protein 7.1 H Total Protein 6.0 L Albumin 3.1 L Vitamin B12 Folate HIV 1&2 Ab/P24 Ag 4thGn Negative 07/14/20 07/14/20 07/14/20 15:24 15:24 15:24 WBC RBC Hgb Hct MCV MCH MCHC RDW Plt Count MPV Immature Gran % (Auto) Neut % (Auto) Lymph % (Auto) Robeson % (Auto) Eos % (Auto) Baso % (Auto) Lymph # (Auto) Robeson # (Auto) Eos # (Auto) Baso # (Auto) Abs Immat Gran (auto) Absolute Neuts (auto) Absolute Nucleated RBC Total Counted Neutrophils % (Manual) Band Neutrophils % Lymphocytes % (Manual) Monocytes % (Manual) Nucleated RBC % Abs Neuts (Manual) Abs Lymphs (Manual) Abs Monocytes (Manual) Platelet Estimate % Immature Plt Fraction Hypochromasia Anisocytosis Microcytosis Sodium 130 L Potassium 3.9 Chloride 95 L Carbon Dioxide 30 Anion Gap 5 L BUN 6 L Creatinine 0.40 L Estim Creat Clear Calc 120 Estimated GFR > 60 Glucose 137 H Calcium 8.7 Iron 14 L TIBC
[2020-07-14 22:00] VITALS: BP 109/72; PULSE 94; RESP 16; TEMP 36.6; O2SAT 98
[2020-07-15 05:19] LABS: GGT 161 U/L (3-50)
[2020-07-15 06:00] VITALS: BP 113/77; PULSE 90; RESP 18; TEMP 36.4; O2SAT 100
--- NOTE | 2020-07-15 07:54 | PM.DS ---
DS: Admitting Diagnosis Admitting Diagnosis Admitting Diagnosis: Liver Masses DS: Discharge Diagnosis Discharge Diagnosis (1) Febrile illness, acute: Code(s): R50.9 - Fever, unspecified Status: Acute Assessment and Plan: likely due to Enterococcus, E coli UTI fevers have resolved at this time, no tremors or chills or diaphoresis today started on IV vancomycin and IV Rocephin culture results both show sensitivities to Macrobid (2) Acute hepatitis: Code(s): B17.9 - Acute viral hepatitis, unspecified Status: Acute Assessment and Plan: RULED out. LIkely seconadry to alcoholic liver disease. negative hepatitis panel, LFTs improving, GGT pending, appreciate Gastroenterology recommendations and consultation (3) Liver masses: Code(s): R16.0 - Hepatomegaly, not elsewhere classified Status: Acute Assessment and Plan: MRI completed, chest CT and chest ultrasound with no immediate are acute concerns, recommend a mammogram after discharge hepatitis panel negative MRI of abdomen shows liver masses 3 of them, likely benign, recommend liver biopsy when platelets have improved and pancytopenia has improved alcohol cessation (4) Alcohol abuse: Code(s): F10.10 - Alcohol abuse, uncomplicated Status: Acute Assessment and Plan: [facility] protocol. Ativan prn. Thiamine IV daily. hepatitis panel negative (5) Pancytopenia: Code(s): D61.818 - Other pancytopenia Status: Acute Assessment and Plan: We will check a peripheral blood smear. Monitor blood counts, transfuse prn. appreciate Hematology consult and recommendations HIV negative, mono negative, COVID negative, hepatitis panel negative chest CT and chest ultrasound with no immediate are acute concerns, recommend a mammogram after discharge slowly improving ordered a CBC and a CMP to be completed in 1-2 weeks outpatient after discharge with instructions to get her primary care provider those results (6) Depression: Qualifiers: Depression Type: other depression Qualified Code(s): F32.89 - Other specified depressive episodes Code(s): F32.9 - Major depressive disorder, single episode, unspecified Status: Inactive Assessment and Plan: Resume home medications when appropriate. encouraged patient to seek counseling through her work after discharge encourage patient to attend AA meetings (7) Enterococcus UTI: Code(s): N39.0 - Urinary tract infection, site not specified; B95.2 - Enterococcus as the cause of diseases classified elsewhere Status: Acute Assessment and Plan: Patient has a history of UTIs patient had mild flank pain admission urine culture was ordered Urine culture grew E coli, Enterococcus species. Started patient on IV vancomycin and Rocephin. received 2 days of both IV vanc and IV Rocephin culture results both show sensitivities to Macrobid, started on Macrobid at discharge (8) Hypokalemia: Code(s): E87.6 - Hypokalemia Status: Acute Assessment and Plan: patient has a history of alcohol abuse appetite has returned yesterday and eating well electrolytes appear to have stabilized potassium level was normal today at 3.7 no nausea, no vomiting, no diarrhea patient is now eating 75% or more of all her meals ordered daily multivitamin at discharge ordered a CMP to be completed in 1-2 weeks DS: Summary Time Spent with Patient Time attestation: Total time spent providing and/or coordinating discharge services:90 minutes Exam Const: General: cooperative, alert, awake and other (NO Visible tremors) Nutritional Appearance: thin and underweight Orientation/consciousness: patient oriented x3 Limitations: no limitations HENMT: Head: normal to inspection General nose exam: Normal external nose present Face and sinus: normal facial exam Mouth: Yes Normal oral and
[2020-07-15 08:16] LABS: Anion Gap 6 mmol/L (8-16); Blood Urea Nitrogen 4 mg/dL (7-17); Calcium 8.4 mg/dL (8.4-10.2); Carbon Dioxide 28 mmol/L (22-30); Chloride 100 mmol/L (98-107); Estimated CRCL calculation 153 ml/min; Estimated Glomerular Filt Rate > 60; Glucose 88 mg/dL (65-105); Potassium 3.7 mmol/L (3.4-5.0); Sodium 134 mmol/L (137-145)
[2020-07-15] MEDS: THERAPEUTIC MULTIVITAMINS/MINERALS TAB (*BKC) 1 TABLET PO (09:08)
[2020-07-15] MEDS: POLYSACCHARIDE IRON COMPLEX 150 MG CAPSULE PO (09:09)
--- NOTE | 2020-07-15 09:58 | WPDGIPROGNO ---
Progress Note: A&P Additional Plan Patient much more comfortable today. Tolerating diet. No abdominal pain. Physical exam reveals patient to be alert vital signs stable. She is anicteric. Lungs are clear. Heart without murmur. Abdomen bowel sounds present soft nontender with no organomegaly. Impression 1. Alcoholic liver disease. Marked elevation of transaminases has gradually declined during hospital stay. Strict alcohol avoidance strongly encourage. Suspicion is pancytopenia is on this basis. 2. Pancytopenia. Likely related to alcoholic liver disease. Hematology is seen patient agrees with this assessment. This will need to be followed after discharge. 3. Abnormal CT scan. Liver masses identified. MRCP I suggests that these are either hemangiomas or focal nodular hyperplasia. Consideration towards follow-up CT scan in 6-12 months is advised. Follow-up liver function test also advised during this interval. Subjective Date/time seen: 07/15/20 09:58 Objective Data Vital Signs Vital Signs: Vital Signs - 24 hr 07/14/20 14:00 07/14/20 22:00 07/15/20 06:00 Temperature 98.2 F 97.8 F 97.6 F Pulse Rate 89 94 90 Respiratory Rate 16 16 18 Blood Pressure 120/84 109/72 113/77 Pulse Oximetry 100 98 100 Intake/Output Intake/Output: Intake & Output 07/12/20 07/13/20 07/14/20 07/15/20 23:59 23:59 23:59 23:59 Intake Total 2200 4060 2600 390 Output Total 2300 Balance -100 4060 2600 390 Meds/Results Medications: Active Medications Generic Name Dose Route Start Last Admin Trade Name Freq PRN Reason Stop Dose Admin Ceftriaxone Sodium/Dextrose 1 gm in 50 mls @ 100 mls/hr 07/14/20 14:00 07/14/20 15:34 Rocephin 1 Gm/D5w 50 Ml IVPB Infused Q24H MIRANDA Infusion Vancomycin HCl 750 mg in 250 mls @ 250 mls/hr 07/15/20 08:00 07/15/20 09:08 Vancomycin 750 Mg/D5w 250 Ml IVPB 250 mls/hr Q12H MIRANDA Administration Ibuprofen 400 mg 07/12/20 12:12 07/14/20 12:27 Ibuprofen 400 Mg Tablet PO 400 mg Q6H PRN Administration Pain or Fever Lorazepam 0.5 mg 07/14/20 08:08 07/14/20 22:57 Lorazepam Inj (*Crx) 2 Mg/Ml Vial IV PUSH 0.5 mg Q12H PRN Administration Anxiety Multivitamins/Calcium 1 tablet 07/15/20 09:00 07/15/20 09:08 Therapeutic Multivitamins/Minerals Tab (*Bkc) PO 1 tablet QAM MIRANDA Administration Ondansetron HCl 4 mg 07/12/20 10:07 07/12/20 21:22 Ondansetron Inj 4 Mg/2 Ml Vial IV PUSH 4 mg Q4H PRN Administration Nausea And Vomiting Polysaccharide Iron Complex 150 mg 07/15/20 08:00 07/15/20 09:09 Polysaccharide Iron Complex 150 Mg Capsule PO 150 mg DAILY@0800 MIRANDA Administration Radiology Results: ITS Impressions Abdomen/Pelvis CT 07/11/20 16:34 IMPRESSION: 1. Liver masses, which may be benign or less likely malignant. Abdomen MRI without and with contrast is recommended. 2. Diffuse hepatic steatosis. 3. No urolithiasis. Chest X-Ray 07/12/20 06:51 IMPRESSION: Status post partial resection of the left lower lobe; no active cardiopulmonary disease Abdomen MRI 07/12/20 12:39 IMPRESSION: 1. 3 hyperenhancing liver masses measuring up to 2.2 cm. In the absence of known malignancy or chronic liver disease, these findings are likely benign masses such as hemangiomas or focal nodular hyperplasia. 2. Diffuse hepatic steatosis. Breast Ultrasound 07/13/20 16:04 IMPRESSION: No sonographic correlate for the patient's reported palpable abnormality. Recommend follow-up with diagnostic mammogram. BI-RADS Category 0: Incomplete: Needs additional imaging evaluation. Chest CT 07/14/20 11:22 IMPRESSION: 1. Partially visualized liver masses better evaluated on the recent abdomen MRI. In the absence of known malignancy or chronic liver disease, these findings are likely benign masses such as hemangiomas or focal nodular hyperplasia. 2. Diffuse hepatic steatosis. Labs Labs: Laboratory Results - last
[2020-07-15 14:00] VITALS: BP 114/77; PULSE 92; RESP 16; TEMP 37.2; O2SAT 100
[2020-07-19 21:37] LABS: Alpha Fetoprotein Tumor Marker 10.6 ng/mL (<6.1)
[2020-07-25 14:53] LABS: Platelet Antibody, Direct IgG NEGATIVE (NEGATIVE)
== END 2020-07-15 16:30 | disposition home or self-care (01) | DRG 433 ==
LOC: ANHED 19:34 → ANH3MED 20:10 → ANH3MEDSUR 07-13 08:46 → ANH3MED 07-18 16:20 → ANH3MEDSUR 07-18 16:20
PROVIDERS: Family Medicine; Internal Medicine Gastroenterology; Internal Medicine Hematology & Oncology; Nurse Practitioner; Physician Assistant; Admitting Provider Internal Medicine; Emergency Provider Emergency Medicine; Visit Provider Internal Medicine
DX: K70.10 Alcoholic hepatitis without ascites (principal); N39.0 Urinary tract infection, site not specified; D61.818 Other pancytopenia; K70.30 Alcoholic cirrhosis of liver without ascites; Z20.828 Contact with and (suspected) exposure to other viral communicable diseases; B96.20 Unspecified Escherichia coli [E. coli] as the cause of diseases classified elsewhere; B95.2 Enterococcus as the cause of diseases classified elsewhere; E87.6 Hypokalemia; F10.10 Alcohol abuse, uncomplicated; F41.8 Other specified anxiety disorders
CPT/HCPCS: 36415; 71045; 71260; 74176; 74183; 76642; 80048; 80053; 80074; 80307; 81001; 81025; 82105; 82607; 82728; 82746; 82977; 83036; 83540; 83550; 83605; 83690; 84132; 84450; 84460; 85025; 85055; 85610; 86023; 86140; 86308; 86703; 87040; 87077; 87086; 87088; 87186; 87635; 96361; 96374; 96375; 96376; 99285; A9270; A9577; C9803; G0378; G0379; G0432; J0696; J1885; J2060; J2405; J2765; J3370; J3411; J3480; J7030; Q9967; U0003